=== PATIENT | female | born 1955 | race Caucasian/White ===

== ENCOUNTER 2021-07-16 12:38 | Inpatient (IN) | payer OTHER, MEDICARE ==
[2021-07-16] MEDS ORDERED: CEFTRIAXONE 1000 MG/VIAL ONE (13:20)
[2021-07-16] MEDS ORDERED: METHYLPREDNISOLONE 125 MG INJ ONE (13:20)
[2021-07-16] MEDS ORDERED: IPRATROPIUM BROM 0.5MG/2.5ML ONE (13:21)
[2021-07-16] MEDS ORDERED: NA CHLORIDE 0.9% 500 ML ONE (13:21)
[2021-07-16] MEDS ORDERED: LEVALBUTEROL 1.25 MG/3 ML NEB ONE (13:21)
[2021-07-16 13:27] LABS: Absolute Lymphocytes (CBC) 0.7 K/uL (0.7-4.9); Basophils % 0.3 % (0-1.3); Hematocrit 42.2 % (36.0-45.0); Lymphocytes % 7.6 % (15.3-44.8); MPV 7.6 fL (7.6-11.3); RBC Red Blood Cell Count 4.37 M/uL (3.86-4.86)
--- NOTE | 2021-07-16 13:42 | RAD REPORT ---
EXAM DESCRIPTION: RAD - Chest Single View - 07/16/2021 1:12 pm CLINICAL HISTORY: CONGESTION COMPARISON: None TECHNIQUE: AP portable chest image was obtained 07/16/2021 1:12 pm . FINDINGS: No mass or consolidation. Lung markings are accentuated in each base due to shallow inspir ation and under penetrated portable technique. Minimal lung base infiltrates cannot be excluded. No f ailure or volume overload suspected. Heart and vasculature are normal. No measurable pleural effusion and no pneumothorax. No acute bony abnormality seen. No acute aortic findings suspected. IMPRESSION: Limited portable study without peripheral mass or consolidations seen. Increased opacification in each base probably shallow inspiration atelectasis. Early lung base edema or infiltrate cannot be excluded.
[2021-07-16 13:51] LABS: ALT/SGPT 22 U/L (12-78); AST/SGOT 18 U/L (15-37); Albumin 3.5 g/dL (3.4-5.0); Alkaline Phosphatase 98 U/L (45-117); BUN Blood Urea Nitrogen 15 mg/dL (7-18); Bicarbonate 24 mmol/L (21-32); Bilirubin Direct 0.1 mg/dL (0-0.2); Bilirubin Total 0.5 mg/dL (0.2-1.0); Creatine Phosphokinase 45 U/L (26-192); Glucose Level 276 mg/dL (74-106); Lipase 97 U/L (73-393); NT PRO-BNP 1139 pg/mL (<125); Potassium 4.1 mmol/L (3.5-5.1); Protein, Total 7.3 g/dL (6.4-8.2); Sodium Level 136 mmol/L (136-145); Troponin (Emerg Dept Use Only) < 0.02 ng/mL (0.0-0.045)
[2021-07-16 13:53] LABS: CKMB Creatine Kinase MB < 1.0 ng/mL (1.0-3.6)
[2021-07-16] MEDS ORDERED: ACETAMINOPHEN 500 MG TAB ONE (13:53)
[2021-07-16 14:06] LABS: Protime INR 1.03
--- NOTE | 2021-07-16 14:57 | RAD REPORT ---
EXAM DESCRIPTION: CT - Chest For Pe Angio - 07/16/2021 2:26 pm CLINICAL HISTORY: CHEST PAIN COMPARISON: Chest Single View dated 07/16/2021 TECHNIQUE: Dynamically enhanced 3 mm thick images of the chest were obtained during administration o f approximately 150mL Isovue 370 IV contrast. Coronal and oblique MIP reconstruction images were gene rated and reviewed. Exam utilizes a protocol to evaluate the pulmonary arterial tree. All CT scans are performed using dose optimization technique as appropriate and may include automated exposure control or mA/KV adjustment according to patient size. FINDINGS: No pulmonary emboli are identified. The aorta as imaged shows no acute or suspicious finding. No pericardial thickening or effusion. Motion degradation limits evaluation of the lung parenchyma. There is a 9 millimeter rounded noncalci fied nodule in the right middle lobe (image 78) and a 3 millimeter noncalcified nodule in the left up per lobe (image 58). No consolidation. Scarring or atelectasis changes are present in the lung bases. No pleural effusion or pleural thickening. Small nonspecific mediastinal and hilar lymph nodes are present. No chest wall masses or abnormal axi llary lymphadenopathy. IMPRESSION: No pulmonary emboli identified. No focal consolidation or acute lung parenchymal process identified. Two pulmonary nodules are present largest measuring 9 mm. Using the Fleischner 2017 criteria, recomme ndation for the patient would be to undergoCT study in 3-6 months. If the nodules are stable at the i nitial follow-up, additional follow-up in 18-24 months would be considered for low risk patient or o btained for a high risk patient.
[2021-07-16 16:34] LABS: Urine Blood 2+ (Negative); Urine Glucose Negative (Negative); Urine Protein 1+ (Negative); Urine Specific Gravity <=1.005 (1.005-1.030)
--- NOTE | 2021-07-16 16:37 | EDPHYS ---
Physician Documentation [facility] Name: Alma Chaparro Age: 66 yrs Sex: Female : 1955 Arrival Date: 07/16/2021 Time: 12:39 Bed 4 Private MD: ED Physician Vinod Turpin HPI: 07/16 14:49 This 66 yrs old Female presents to ER via Wheelchair with complaints of low oxygen. ma2 14:49 Onset: The symptoms/episode began/occurred gradually, 2 day(s) ago. Associated signs ma2 and symptoms: Pertinent positives: productive cough, fevere, Pertinent negatives: diaphoresis, dizziness, fever, hemoptysis, nausea, numbness in extremities, visual changes. Severity of symptoms: At their worst the symptoms were moderate in the emergency department the symptoms are unchanged. The patient has not experienced similar symptoms in the past. Historical: - Allergies: 12:48 PENICILLINS; ld1 12:48 Hydrocodone-Acetaminophen; ld1 - Home Meds: 13:10 metformin 500 mg Oral tab [Active]; lorazepam 0.5 mg Oral tab 1 tab As needed [Active]; ss sertraline 100 mg oral tab 1 tab once daily [Active]; levothyroxine 88 mcg cap 1 cap once daily [Active]; pantoprazole 40 mg oral TbEC 1 tab once daily [Active]; simvastatin 40 mg Oral tab 1 tab once daily [Active]; cholestyramine Powder 1 scoop twice daily [Active]; - PMHx: 12:48 Hypertensive disorder; Anxiety; COPD; ld1 - Immunization history:: Adult Immunizations up to date, Client reports receiving the 2nd dose of the Covid vaccine. - Social history:: Smoking status: Patient reports the use of cigarette tobacco products, smokes three packs cigarettes per day. Patient/guardian denies using alcohol, Patient/guardian denies using street drugs, The patient lives with family. - Family history:: not pertinent. ROS: 14:49 Constitutional: Negative for fever, chills, and weight loss. ma2 14:49 All other systems are negative. Exam: 14:49 Constitutional: This is a well developed, well nourished patient who is awake, alert, ma2 and in no acute distress. Head/Face: Normocephalic, atraumatic. Eyes: Pupils equal round and reactive to light, extra-ocular motions intact. Lids and lashes normal. Conjunctiva and sclera are non-icteric and not injected. Cornea within normal limits. Periorbital areas with no swelling, redness, or edema. ENT: Nares patent. No nasal discharge, no septal abnormalities noted. Tympanic membranes are normal and external auditory canals are clear. Oropharynx with no redness, swelling, or masses, exudates, or evidence of obstruction, uvula midline. Mucous membranes moist. Neck: Trachea midline, no thyromegaly or masses palpated, and no cervical lymphadenopathy. Supple, full range of motion without nuchal rigidity, or vertebral point tenderness. No Meningismus. Chest/axilla: Normal chest wall appearance and motion. Nontender with no deformity. No lesions are appreciated. Cardiovascular: Regular rate and rhythm with a normal S1 and S2. No gallops, murmurs, or rubs. Normal PMI, no JVD. No pulse deficits. Abdomen/GI: Soft, non-tender, with normal bowel sounds. No distension or tympany. No guarding or rebound. No evidence of tenderness throughout. Back: No spinal tenderness. No costovertebral tenderness. Full range of motion. Skin: Warm, dry with normal turgor. Normal color with no rashes, no lesions, and no evidence of cellulitis. MS/ Extremity: Pulses equal, no cyanosis. Neurovascular intact. Full, normal range of motion. Neuro: Awake and alert, GCS 15, oriented to person, place, time, and situation. Cranial nerves II-XII grossly intact. Motor strength 5/5 in all extremities. Sensory grossly intact. Cerebellar exam normal. Normal gait. 14:49 Respiratory: moderate respiratory distress is noted, Respirations: labored breathing, Breath sounds: rales, Respiratory rate: 20 Vital Signs: 12:45 BP 129 / 69; Pulse 111; Resp 22; Temp 101.9(O); Pulse Ox 89% 4 lpm ; Weight 90.72 kg; ld1 Height 5 ft. 4 in. (162.56 cm); Pain 0/10; 13:38 BP 127 / 54; Pulse 102; Resp 29; Pulse Ox 97% on Nebulizer Mask; jl7 15:00 BP 147 / 68; Pulse 108; Resp 24; Pulse Ox 99% on 6 lpm NC; jl7 17:14 BP 140 / 80; Pulse 90; Resp 21; Temp 98.6; Pulse Ox 91% on 50% Venturi mask; jl7 12:45 Body Mass Index 34.33 (90.72 kg, 162.56 cm) ld1 MDM: 12:52 Patient medically screened. ma2 14:49 Differential diagnosis: Anemia Anxiety Reaction pneumonia, reactive airway disease. al2 16:34 Data reviewed: vital signs, nurses notes. Counseling: I had a detailed discussion with ma2 the patient and/or guardian regarding: the historical points, exam findings, and any diagnostic results supporting the discharge/admit diagnosis, the presence of at least one elevated blood pressure reading (>120/80) during this emergency department visit, the need for outpatient follow up. 07/16 12:53 Order name: BMP [facility] 07/16 12:53 Order name: Blood Culture Adult (2) [facility] 07/16 12:53 Order name: CBC with Diff [facility] 07/16 12:53 Order name: CPK; Complete Time: 13:58 [facility] 07/16 12:53 Order name: Ckmb; Complete Time: 13:58 [facility] 07/16 12:53 Order name: D-Dimer; Complete Time: 15:24 [facility] 07/16 12:53 Order name: Hepatic Function; Complete Time: 13:58 [facility] 07/16 12:53 Order name: Lipase; Complete Time: 13:58 [facility] 07/16 12:53 Order name: Magnesium; Complete Time: 13:58 [facility] 07/16 12:53 Order name: NT PRO-BNP; Complete Time: 13:58 [facility] 07/16 12:53 Order name: PT-INR; Complete Time: 15:24 [facility] 07/16 12:53 Order name: Ptt, Activated; Complete Time: 15:24 [facility] 07/16 12:53 Order name: Troponin (emerg Dept Use Only); Complete Time: 13:58 [facility] 07/16 12:53 Order name: SARS-COV-2 RT PCR (Document "Date of Onset" if Symptomatic); Complete Time: [facility] 15:24 07/16 12:53 Order name: XRAY CXR (1 view); Complete Time: 13:45 al2 07/16 12:53 Order name: Basic Metabolic Panel; Complete Time: 13:58 EDMS 07/16 12:53 Order name: Blood Culture [facility] 07/16 12:53 Order name: CBC with Automated Diff; Complete Time: 13:45 [facility] 07/16 12:54 Order name: Procalcitonin; Complete Time: 15:24 al2 07/16 12:54 Order name: Lactate; Complete Time: 13:58 al2 07/16 14:11 Order name: CT Chest For PE Angio; Complete Time: 15:24 al2 07/16 16:34 Order name: Urine Dipstick-Ancillary; Complete Time: 16:35 [facility] 07/16 16:42 Order name: Lactate Sepsis 2 HR Follow-up; Complete Time: 16:42 [facility] 07/16 12:53 Order name: EKG; Complete Time: 12:54 al2 07/16 12:53 Order name: Cardiac monitoring; Complete Time: 13:36 ma2 07/16 12:53 Order name: EKG - Nurse/Tech; Complete Time: 13:36 al2 07/16 12:53 Order name: IV Saline Lock; Complete Time: 13:19 al2 07/16 12:53 Order name: Labs collected and sent; Complete Time: 13:19 ma2 07/16 12:53 Order name: O2 Per Protocol; Complete Time: 13:19 al2 07/16 12:53 Order name: O2 Sat Monitoring; Complete Time: 13:19 al2 07/16 15:25 Order name: Urine Dipstick-Ancillary (obtain specimen); Complete Time: 16:35 ma2 Administered Medications: 13:30 Drug: AtroVENT (ipratropium) Aerosol 0.5 mg Route: Inhalation; [facility] [address] 13:30 Drug: Xopenex (levalbuterol) (3) 1.25 mg Route: Inhalation; jl7 14:00 Follow up: Response: No adverse reaction jl7 13:30 Drug: MethylPrednisoLONE 125 mg Route: IVP; Site: left antecubital; jl7 14:00 Follow up: Response: No adverse reaction jl7 13:30 Drug: NS 0.9% 500 ml Route: IV; Rate: bolus; Site: left antecubital; jl7 14:15 Follow up: Response: No adverse reaction; IV Status: Completed infusion; IV Intake: jl7 500ml 13:31 Drug: AtroVENT (ipratropium) Aerosol 0.5 mg Route: Inhalation; 7 13:33 Drug: Rocephin (cefTRIAXone) 1 grams Route: IV; Rate: calculated rate; Site: left [facility] antecubital; 15:36 Follow up: Response: No adverse reaction; IV Status: Completed infusion 7 13:33 Drug: AtroVENT (ipratropium) Aerosol 0.5 mg Route: Inhalation; 7 14:00 Follow up: Response: No adverse reaction 7 14:05 Drug: Acetaminophen 1000 mg Route: PO; [facility] 15:30 Follow up: Response: No adverse reaction; Temperature is decreased jl7 18:16 Not Given (Physician Discretion): NS 0.9% 2000 ml IV at 1 bolus Per protocol; 2000 mL 7 bolus Disposition Summary: 07/16/21 16:36 Hospitalization Ordered Hospitalization Status: Inpatient Admission ma2 Provider: Gerardo Colón Location: Telemetry/MedSurg (Inpatient) ma2 Condition: Stable ma2 Problem: new ma2 Symptoms: are unchanged al2 Bed/Room Type: Standard [facility] Room Assignment: 228(07/16/21 17:35) kj1 Diagnosis - Severe sepsis without septic shock ma2 - Acute cystitis ma2 - Altered mental status, unspecified ma2 Forms: - Medication Reconciliation Form ma2 - SBAR form ma2 Signatures: Dispatcher [employer] Omaira Blair RN RN ss Wanda Gonzales RN RN jl7 Vinod Turpin MD MD ma2 Anne Britt kj1 Brenda Calvert RN RN ld1 Corrections: (The following items were deleted from the chart) 13:14 12:48 Home Meds: Metformin Oral; 1 17:35 16:36 ma2 kj1
--- NOTE | 2021-07-16 16:37 | ER ---
Nurse's Notes [facility] Name: Alma Chaparro Age: 66 yrs Sex: Female : 1955 Arrival Date: 07/16/2021 Time: 12:39 Bed 4 Private MD: Diagnosis: Severe sepsis without septic shock;Acute cystitis;Altered mental status, unspecified Presentation: 07/16 12:45 Chief complaint: Patient states: I have been really tired and wanting to sleep all the ld1 time. My oxygen level this morning was 78% RA. Pt family states she was very disoriented and altered. Pt daughter brought her husbands oxygen tank to get oxygen level up. Upon arrival to ER pt SpO2 was 85% RA. Coronavirus screen: At this time, the client does not indicate any symptoms associated with coronavirus-19. Ebola Screen: No symptoms or risks identified at this time. Initial Sepsis Screen: Does the patient meet any 2 criteria? No. Patient's initial sepsis screen is negative. Does the patient have a suspected source of infection? No. Patient's initial sepsis screen is negative. Risk Assessment: Do you want to hurt yourself or someone else? Patient reports no desire to harm self or others. Onset of symptoms was July 16, 2021. 12:45 Method Of Arrival: Wheelchair ld1 12:45 Acuity: YUNI 2 ld1 Triage Assessment: 12:48 General: Appears in no apparent distress. uncomfortable, Behavior is drowsy. Pain: ld1 Denies pain. EENT: No signs and/or symptoms were reported regarding the EENT system. Neuro: Level of Consciousness is awake, obeys commands, confused, Oriented to person, place, time, situation. Cardiovascular: Capillary refill < 3 seconds Patient's skin is warm and dry. Respiratory: Airway is patent Respiratory effort is even, labored. GI: Abdomen is round non-distended. : No signs and/or symptoms were reported regarding the genitourinary system. Derm: No signs and/or symptoms reported regarding the dermatologic system. Musculoskeletal: No signs and/or symptoms reported regarding the musculoskeletal system. Historical: - Allergies: 12:48 PENICILLINS; ld1 12:48 Hydrocodone-Acetaminophen; ld1 - Home Meds: 13:10 metformin 500 mg Oral tab [Active]; lorazepam 0.5 mg Oral tab 1 tab As needed [Active]; ss sertraline 100 mg oral tab 1 tab once daily [Active]; levothyroxine 88 mcg cap 1 cap once daily [Active]; pantoprazole 40 mg oral TbEC 1 tab once daily [Active]; simvastatin 40 mg Oral tab 1 tab once daily [Active]; cholestyramine Powder 1 scoop twice daily [Active]; - PMHx: 12:48 Hypertensive disorder; Anxiety; COPD; ld1 - Immunization history:: Adult Immunizations up to date, Client reports receiving the 2nd dose of the Covid vaccine. - Social history:: Smoking status: Patient reports the use of cigarette tobacco products, smokes three packs cigarettes per day. Patient/guardian denies using alcohol, Patient/guardian denies using street drugs, The patient lives with family. - Family history:: not pertinent. Screenin:38 Abuse screen: Denies threats or abuse. Denies injuries from another. Nutritional jl7 screening: No deficits noted. Tuberculosis screening: No symptoms or risk factors identified. Fall Risk IV access (20 points). Total Franks Fall Scale indicates No Risk (0-24 pts). Assessment: 13:00 General: Appears distressed, uncomfortable, Behavior is calm, cooperative, appropriate jl7 for age. Pain: Denies pain. Neuro: Level of Consciousness is awake, alert, obeys commands, Oriented to person, place, time, situation. Cardiovascular: Heart tones present Patient's skin is warm and dry. Respiratory: Airway is patent Respiratory effort is even, labored, Respiratory pattern is symmetrical, tachypnea Breath sounds are clear. Derm: Skin is pink, warm \T\ dry. 14:00 Reassessment: Patient appears in no apparent distress at this time. No changes from jl7 previously documented assessment. Patient and/or family updated on plan of care and expected duration. Pain level reassessed. Patient is alert, oriented x 3, equal unlabored respirations, skin warm/dry/pink. 15:40 Reassessment: ERD at bedside discussing results and POC. jl7 16:00 Reassessment: Patient appears in no apparent distress at this time. No changes from jl7 previously documented assessment. Patient and/or family updated on plan of care and expected duration. Pain level reassessed. Patient is alert, oriented x 3, equal unlabored respirations, skin warm/dry/pink. 17:00 Reassessment: Patient appears in no apparent distress at this time. No changes from jl7 previously documented assessment. Patient and/or family updated on plan of care and expected duration. Pain level reassessed. Patient is alert, oriented x 3, equal unlabored respirations, skin warm/dry/pink. 18:00 Reassessment: Patient appears in no apparent distress at this time. No changes from jl7 previously documented assessment. Patient and/or family updated on plan of care and expected duration. Pain level reassessed. Patient is alert, oriented x 3, equal unlabored respirations, skin warm/dry/pink. Vital Signs: 12:45 BP 129 / 69; Pulse 111; Resp 22; Temp 101.9(O); Pulse Ox 89% 4 lpm ; Weight 90.72 kg; ld1 Height 5 ft. 4 in. (162.56 cm); Pain 0/10; 13:38 BP 127 / 54; Pulse 102; Resp 29; Pulse Ox 97% on Nebulizer Mask; jl7 15:00 BP 147 / 68; Pulse 108; Resp 24; Pulse Ox 99% on 6 lpm NC; jl7 17:14 BP 140 / 80; Pulse 90; Resp 21; Temp 98.6; Pulse Ox 91% on 50% Venturi mask; jl7 12:45 Body Mass Index 34.33 (90.72 kg, 162.56 cm) ld1 ED Course: 12:39 Patient arrived in ED. am2 12:48 Triage completed. ld1 12:48 Arm band placed on right wrist. ld1 12:52 Vinod Turpin MD is Attending Physician. ma2 13:00 Wanda Gonzales RN is Primary Nurse. jl7 13:00 Patient has correct armband on for positive identification. Placed in gown. Bed in low jl7 position. Call light in reach. Side rails up X2. panel monitor on. Pulse ox on. NIBP on. 13:00 Initial lab(s) drawn, by ED staff, sent to lab. First set of blood cultures drawn by ED jl7 staff, Second set of blood cultures drawn by ia, EKG done, by ED staff, reviewed by Vinod Turpin MD COVID swab sent to lab. Inserted saline lock: 20 gauge in left antecubital area, using aseptic technique. Blood collected. 13:12 XRAY CXR (1 view) In Process Unspecified. EDMS 14:26 CT Chest For PE Angio In Process Unspecified. EDMS 16:36 Gerardo Colón DO is Hospitalizing Provider. ma2 19:01 No provider procedures requiring assistance completed. Patient admitted, IV remains in jl7 place. intact, No redness/swelling at site. Administered Medications: 13:30 Drug: AtroVENT (ipratropium) Aerosol 0.5 mg Route: Inhalation; jl7 13:30 Drug: Xopenex (levalbuterol) (3) 1.25 mg Route: Inhalation; jl7 14:00 Follow up: Response: No adverse reaction jl7 13:30 Drug: MethylPrednisoLONE 125 mg Route: IVP; Site: left antecubital; jl7 14:00 Follow up: Response: No adverse reaction jl7 13:30 Drug: NS 0.9% 500 ml Route: IV; Rate: bolus; Site: left antecubital; jl7 14:15 Follow up: Response: No adverse reaction; IV Status: Completed infusion; IV Intake: jl7 500ml 13:31 Drug: AtroVENT (ipratropium) Aerosol 0.5 mg Route: Inhalation; jl7 13:33 Drug: Rocephin (cefTRIAXone) 1 grams Route: IV; Rate: calculated rate; Site: left jl7 antecubital; 15:36 Follow up: Response: No adverse reaction; IV Status: Completed infusion jl7 13:33 Drug: AtroVENT (ipratropium) Aerosol 0.5 mg Route: Inhalation; jl7 14:00 Follow up: Response: No adverse reaction jl7 14:05 Drug: Acetaminophen 1000 mg Route: PO; jl7 15:30 Follow up: Response: No adverse reaction; Temperature is decreased jl7 18:16 Not Given (Physician Discretion): NS 0.9% 2000 ml IV at 1 bolus Per protocol; 2000 mL jl7 bolus Intake: 14:15 IV: 500ml; Total: 500ml. jl7 Outcome: 16:36 Decision to Hospitalize by Provider. ma2 19:01 Admitted to Tele accompanied by tech, family with patient, via wheelchair, room 228, jl7 with oxygen, with chart, Report called to GEMMA Rutherford 19:01 Condition: stable 19:01 Discharge instructions given to patient, family, Instructed on the need for admit, Demonstrated understanding of instructions. 19:02 Patient left the ED. tim Signatures: Dispatcher [employer] Omaira Blair RN RN ss Wanda Gonzales RN RN jl7 Nora Dominguez Mohammad, MD MD wy2 Brenda Calvret RN RN ld1 Corrections: (The following items were deleted from the chart) 13:14 12:48 Home Meds: Metformin Oral; [facility] 15:49 15:46 Reassessment: tim dumont
--- NOTE | 2021-07-16 17:15 | P.HP ---
Certification for Inpatient Patient admitted to: Inpatient With expected LOS: >2 Midnights Patient will require the following post-hospital care: None Practitioner: I am a practitioner with admitting privileges, knowledge of patient current condition, hospital course, and medical plan of care. Services: Services provided to patient in accordance with Admission requirements found in Title 42 Section 412.3 of the Code of Federal Regulations Patient History Date of Service: 07/16/21 Primary Care Provider: Luis Garcia Reason for admission: Shortness of breath and dysuria History of Present Illness: 66-year-old female presented to the emergency room with increasing shortness of breath and dysuria. Patient is visiting in the area. She is from [facility] near [facility]. She reports 3-day history of dysuria. She had fever this morning. She denied any night sweats, or chest pain. She did report some shortness of breath. No significant nausea or vomiting. Patient came to the ER for further evaluation. In the ER patient was evaluated. Patient had shortness of breath. D-dimer was elevated. CT scan showed no evidence of pulmonary believes him or pneumonia. Patient found to have a UTI. White count 9.6, hemoglobin 14. Blood count 185. Sodium 136, potassium 4.1. BUN of 15, creatinine 1.03 with a GFR 53. Glucose 276. Procalcitonin 0.44. Troponin normal. Lactic acid was 2.2. Patient was given 1 L fluid bolus. Repeat lactic acid normal at 1.6. Patient admitted for further evaluation and treatment. Patient reports history of COPD but only takes albuterol. - Past Medical/Surgical History Diabetic: Yes -: Diabetes mellitus type 2 [id number] -: Hypothyroidism -: Depression -: GERD -: Hyperlipidemia -: Hypertension -: COPD -: Tobacco abuse -: Hysterectomy Psychosocial/ Personal History: Patient is visiting in the area. She is from [facility] near [facility] - Family History Family History: Reviewed- Non-Contributory - Social History Smoking Status: Current every day smoker Counseled patient to stop smoking for: less than 10 minutes Smoking therapy provided: Yes Patient receptive to therapy: Yes Alcohol use: No CD- Drugs: No Caffeine use: Yes Place of Residence: Home Review of Systems General: Fever, As per HPI Eyes: Unremarkable ENT: Unremarkable Respiratory: Shortness of Breath, SOB with Excertion, Wheezing, As per HPI Cardiovascular: Unremarkable Genitourinary: Dysuria, As per HPI Musculoskeletal: Unremarkable Integumentary: Unremarkable Neurological: Unremarkable Lymphatics: Unremarkable Physical Examination - Studies Laboratory Data (last 24 hrs) 07/16/21 13:20: PT 11.8, INR 1.03, APTT 31.8 07/16/21 13:20: WBC 9.60, Hgb 14.2, Hct 42.2, Plt Count 185 07/16/21 13:20: Sodium 136, Potassium 4.1, BUN 15, Creatinine 1.03, Glucose 276 H, Magnesium 2.0, Total Bilirubin 0.5, AST 18, ALT 22, Alkaline Phosphatase 98, Lipase 97 Assessment and Plan - Plan COVID: Negative Chest x-ray: COMPARISON: None TECHNIQUE: AP portable chest image was obtained 07/16/2021 1:12 pm . FINDINGS: No mass or consolidation. Lung markings are accentuated in each base due to shallow inspiration and under penetrated portable technique. Minimal lung base infiltrates cannot be excluded. No failure or volume overload suspected. Heart and vasculature are normal. No measurable pleural effusion and no pneumothorax. No acute bony abnormality seen. No acute aortic findings suspected. IMPRESSION: Limited portable study without peripheral mass or consolidations seen. Increased opacification in each base probably shallow inspiration atelectasis. Early lung base edema or infiltrate cannot be excluded. CT angio chest: COMPARISON: Chest Single View dated 07/16/2021 TECHNIQUE: Dynamically enhanced 3 mm thick images of the chest were obtained during administration of approximately 150mL Isovue 370 IV contrast. Coronal and oblique MIP reconstruction images were generated and reviewed. Exam utilizes a protocol to evaluate the pulmonary arterial tree. All CT scans are performed using dose optimization technique as appropriate and may include automated exposure control or mA/KV adjustment according to patient size. FINDINGS: No pulmonary emboli are identified. The aorta as imaged shows no acute or suspicious finding. No pericardial thickening or effusion. Motion degradation limits evaluation of the lung parenchyma. There is a 9 millimeter rounded noncalcified nodule in the right middle lobe (image 78) and a 3 millimeter noncalcified nodule in the left upper lobe (image 58). No consolidation. Scarring or atelectasis changes are present in the lung bases. No pleural effusion or pleural thickening. Small nonspecific mediastinal and hilar lymph nodes are present. No chest wall masses or abnormal axillary lymphadenopathy. IMPRESSION: No pulmonary emboli identified. No focal consolidation or acute lung parenchymal process identified. Two pulmonary nodules are present largest measuring 9 mm. Using the Fleischner 2017 criteria, recommendation for the patient would be to undergoCT study in 3-6 months. If the nodules are stable at the initial follow-up, additional follow- up in 18-24 months would be considered for low risk patient or obtained for a high risk patient. Physical Exam: GENERAL: The patient is a well-developed, well-nourished, in no apparent distress. Alert and oriented x3. VITAL SIGNS: Reviewed HEENT: Head is normocephalic and atraumatic. Extraocular muscles are intact. Pupils are equal, round, and reactive to light and accommodation. Mouth dry. NECK: Supple. No carotid bruits. No lymphadenopathy or thyromegaly. LUNGS: Wheezing bilateral. Currently on Ventimask. HEART: Regular rate and rhythm, no appreciable gallops, rubs, murmurs or extra heart sounds ABDOMEN: Soft, nontender, and nondistended. Positive bowel sounds. No hepatosplenomegaly was noted. EXTREMITIES: Without any cyanosis, clubbing, rash, lesions or peripheral edema. NEUROLOGIC: The patient is oriented to person, place and time. Strength and sensation are grossly intact. Face is symmetric. SKIN: Normal color, turgor and temperature. No ulcerations or rashes noted. Impression: Dyspnea secondary to COPD exacerbation with CT scan showing 2 pulmonary nodules UTI Diabetes mellitus type 2 with hyperglycemia Hypertension Hyperlipidemia Hypothyroidism GERD Tobacco abuse Depression with anxiety Plan: Dyspnea secondary to COPD exacerbation with CT scan showing 2 pulmonary nodules: Patient will be admitted for further evaluation and treatment. Patient given Solu-Medrol in the emergency room. We will continue with prednisone 20 mg 1 pill twice daily. Continue with COPD medicationBrovana, albuterol and Atrovent. Wean off oxygen to maintain sats above 90%. Patient currently on Ventimask. CT scan showed no evidence of pulmonary embolism or pneumonia. Patient with pulmonary nodules. This will need to be further evaluated as an outpatient with follow-up and repeat CT scan in 3 to 6 months. Patient also with UTI. Continue IV fluids. Continue Rocephin. Blood and urine culture results obtained. Anticipate continued improvement likely discharge in the next 72 hours. UTI: Continue with Rocephin. Blood and urine culture results obtained. We will continue with IV fluids. Diabetes mellitus type 2 with hyperglycemia: We will check A1c. Continue Accu- Cheks and sliding scale. Obtain and review home medication. Hypertension: Blood pressure stable at this time. Will monitor off medication. Need to obtain and review home medication. Hyperlipidemia: Restart home medication Zocor 40 mg daily. Hypothyroidism: We will check TSH and free T4. Continue home medication levothyroxine 88 mcg daily. GERD: Continue with home medicationProtonix 40 mg daily. Tobacco abuse: We will provide nicotine patch. Cessation education will be provided. Depression with anxiety: Continue with home medication of sertraline 100 mg daily and lorazepam as needed. Code Status: Full Code DVT prophylaxis: Lovenox Advanced Care Planning-30 minutes: Home at discharge. Discharge Plan: Home Plan to discharge in: 72 Hours - Advance Directives Does patient have a Living Will: No Does patient have a Durable POA for Healthcare: No - Code Status/Comfort Care Code Status Assessed: Yes (Full code) Time Spent Managing Pts Care (In Minutes): 55
[2021-07-16] MEDS ORDERED: ONDANSETRON 4 MG/2 ML VIAL IV PRN (18:13)
[2021-07-16] MEDS ORDERED: IPRATROPIUM BROM 0.5MG/2.5ML NEB PRN (18:13)
[2021-07-16] MEDS ORDERED: ALBUTEROL 2.5 MG/3 ML NEB SOL NEB PRN (18:13)
[2021-07-16 18:17] VITALS: BMI 34.3
[2021-07-16] MEDS: NICOTINE 21 MG/PAT TD SCH (20:00)
[2021-07-16] MEDS: ARFORMOTEROL TARTRATE 15 MCG/2 ML VIAL.NEB NEB SCH (20:00)
[2021-07-16] MEDS: NA CHLORIDE 0.9% 1,000 ML IV SCH (20:25)
[2021-07-16] MEDS: ENOXAPARIN 40 MG/0.4 ML SQ SCH (20:28)
[2021-07-16] MEDS: ATORVASTATIN 20 MG TAB PO SCH (20:29)
[2021-07-16] MEDS: predniSONE 20 MG TAB PO SCH (20:29)
[2021-07-16] MEDS: INSULIN -REGULAR HUMAN 50 UNIT/0.5 ML ML SQ SCH (20:33)
[2021-07-16] MEDS: LORAZEPAM 0.5 MG TABLET PO PRN (20:37)
[2021-07-17] MEDS: NA CHLORIDE 0.9% 1,000 ML IV SCH (04:13)
[2021-07-17] MEDS: LEVOTHYROXINE SOD 0.088 MG TAB PO SCH (05:36)
--- NOTE | 2021-07-17 06:08 | P.PN ---
Subjective Date of Service: 07/17/21 Primary Care Provider: Luis Garcia Chief Complaint: Shortness of breath and dysuria Subjective: Other (Patient reports improvement. Currently on 6 L per nasal cannula.) Physical Examination - Vital Signs Temperature: 98.6 F Blood Pressure: 140/80 Pulse: 90 Respirations: 21 - Studies Laboratory Data (last 24 hrs) 07/16/21 13:20: PT 11.8, INR 1.03, APTT 31.8 07/16/21 13:20: WBC 9.60, Hgb 14.2, Hct 42.2, Plt Count 185 07/16/21 13:20: Sodium 136, Potassium 4.1, BUN 15, Creatinine 1.03, Glucose 276 H, Magnesium 2.0, Total Bilirubin 0.5, AST 18, ALT 22, Alkaline Phosphatase 98, Lipase 97 Assessment & Plan Discharge Plan: Home Plan to discharge in: 48 Hours Physician Review Additional Text: COVID: Negative Chest x-ray: COMPARISON: None TECHNIQUE: AP portable chest image was obtained 07/16/2021 1:12 pm . FINDINGS: No mass or consolidation. Lung markings are accentuated in each base due to shallow inspiration and under penetrated portable technique. Minimal lung base infiltrates cannot be excluded. No failure or volume overload suspected. Heart and vasculature are normal. No measurable pleural effusion and no pneumothorax. No acute bony abnormality seen. No acute aortic findings suspected. IMPRESSION: Limited portable study without peripheral mass or consolidations seen. Increased opacification in each base probably shallow inspiration atelectasis. Early lung base edema or infiltrate cannot be excluded. CT angio chest: COMPARISON: Chest Single View dated 07/16/2021 TECHNIQUE: Dynamically enhanced 3 mm thick images of the chest were obtained during administration of approximately 150mL Isovue 370 IV contrast. Coronal and oblique MIP reconstruction images were generated and reviewed. Exam utilizes a protocol to evaluate the pulmonary arterial tree. All CT scans are performed using dose optimization technique as appropriate and may include automated exposure control or mA/KV adjustment according to patient size. FINDINGS: No pulmonary emboli are identified. The aorta as imaged shows no acute or suspicious finding. No pericardial thickening or effusion. Motion degradation limits evaluation of the lung parenchyma. There is a 9 millimeter rounded noncalcified nodule in the right middle lobe (image 78) and a 3 millimeter noncalcified nodule in the left upper lobe (image 58). No consolidation. Scarring or atelectasis changes are present in the lung bases. No pleural effusion or pleural thickening. Small nonspecific mediastinal and hilar lymph nodes are present. No chest wall masses or abnormal axillary lymphadenopathy. IMPRESSION: No pulmonary emboli identified. No focal consolidation or acute lung parenchymal process identified. Two pulmonary nodules are present largest measuring 9 mm. Using the Fleischner 2017 criteria, recommendation for the patient would be to undergoCT study in 3-6 months. If the nodules are stable at the initial follow-up, additional follow- up in 18-24 months would be considered for low risk patient or obtained for a high risk patient. Physical Exam: GENERAL: The patient is a well-developed, well-nourished, in no apparent distress. Alert and oriented x3. VITAL SIGNS: Reviewed HEENT: Neck supple LUNGS: Wheezing noted. Overall better air movement. Now down to 6 L per nasal cannula HEART: Regular rate and rhythm, no appreciable gallops, rubs, murmurs or extra heart sounds ABDOMEN: Soft, nontender, and nondistended. Positive bowel sounds. No hepatosplenomegaly was noted. EXTREMITIES: Without any cyanosis, clubbing, rash, lesions or peripheral edema. NEUROLOGIC: The patient is oriented to person, place and time. Strength and sensation are grossly intact. Face is symmetric. SKIN: Normal color, turgor and temperature. No ulcerations or rashes noted. Impression: Dyspnea secondary to COPD exacerbation with CT scan showing 2 pulmonary nodules UTI Diabetes mellitus type 2 with hyperglycemia Hypertension Hyperlipidemia Hypothyroidism GERD Tobacco abuse Depression with anxiety Plan: Dyspnea secondary to COPD exacerbation with CT scan showing 2 pulmonary nodules: Patient has improved. Now down to 6 L per nasal cannula. Continue to wean off oxygen to maintain sats above 90%. CT shows no evidence of pneumonia or pulmonary believes him. Continue prednisone taper. Patient will require COPD medication at discharge. Patient remains on Rocephin. Will discontinue IV fluids. Blood, urine culture obtained. CT scan revealed pulmonary nodules. This will need to be further evaluated as an outpatient with follow-up and repeat CT scan in 3 to 6 months. Anticipate discharge in the next 48 hours. UTI: Continue with Rocephin. Blood and urine culture results obtained. IV fluids discontinued. Diabetes mellitus type 2 with hyperglycemia: Hemoglobin A1c 7.4. Blood sugars elevated since the patient is on steroids. Will start low-dose Lantus for right now. Continue Accu-Cheks and sliding scale. Obtain and review home medication. Hypertension: Restart lisinopril 5 mg daily. Will monitor and adjust accordingly. Hyperlipidemia: Continue home medication Zocor 40 mg daily. Hypothyroidism: Lab unremarkable. Continue home medication levothyroxine 88 mcg daily. GERD: Continue with home medicationProtonix 40 mg daily. Tobacco abuse: Will provide nicotine patch. Cessation education will be provided. Depression with anxiety: Continue with home medication of sertraline 100 mg daily and lorazepam as needed. Code Status: Full Code DVT prophylaxis: Lovenox Advanced Care Planning-30 minutes: Home at discharge. Patient plans to go back to [facility] at discharge Time Spent Managing Pts Care (In Minutes): 55
[2021-07-17 06:19] LABS: Absolute Lymphocytes (CBC) 0.8 K/uL (0.7-4.9); Basophils % 0.1 % (0-1.3); Hematocrit 39.9 % (36.0-45.0); Lymphocytes % 7.2 % (15.3-44.8); MPV 7.7 fL (7.6-11.3); RBC Red Blood Cell Count 4.13 M/uL (3.86-4.86)
[2021-07-17 06:35] LABS: Magnesium 2.3 mg/dL (1.8-2.4); Potassium 4.2 mmol/L (3.5-5.1); Thyroid Stimulating Hormone 0.613 uIU/mL (0.360-3.740)
[2021-07-17] MEDS ORDERED: GLUCAGON 1 MG/VIAL IM PRN (07:16)
[2021-07-17] MEDS ORDERED: D50W 25 GM/50 ML SYRINGE IV PRN (07:16)
[2021-07-17 07:45] LABS: Blood Morphology Comment NOT SEEN (NOT SEEN); Platelet Estimate ADEQ
[2021-07-17] MEDS ORDERED: INSULIN GLARGINE 100 UNITS/ML SQ SCH (08:00)
[2021-07-17] MEDS: ARFORMOTEROL TARTRATE 15 MCG/2 ML VIAL.NEB NEB SCH ×2 (08:00→19:45)
[2021-07-17] MEDS: NICOTINE 21 MG/PAT TD SCH (08:24)
[2021-07-17] MEDS: ENOXAPARIN 40 MG/0.4 ML SQ SCH (08:25)
[2021-07-17] MEDS: PANTOPRAZOLE 40MG TABLET PO SCH (08:25)
[2021-07-17] MEDS: THIAMINE HCL 100 MG TABLET PO SCH (08:25)
[2021-07-17] MEDS: METFORMIN HCL 500 MG TAB PO SCH ×3 (08:25→20:21)
[2021-07-17] MEDS: FOLIC ACID 1 MG TABLET PO SCH (08:25)
[2021-07-17] MEDS: predniSONE 20 MG TAB PO SCH ×2 (08:25→20:21)
[2021-07-17] MEDS: SERTRALINE HCL 100 MG TAB PO SCH (08:25)
[2021-07-17] MEDS: INSULIN -REGULAR HUMAN 50 UNIT/0.5 ML ML SQ SCH ×4 (08:41→20:22)
--- NOTE | 2021-07-17 08:45 | P.CNS ---
Date of Consult: 07/17/21 Primary Care Provider: Luis Garcia Chief Complaint: Shortness of breath and dysuria History of Present Illness: 66-year-old [place]au[place] 66 aw SOB and dysuria and fever, NO PE, Hx of COPD Allergies hydrocodone [From [place]] Adverse Reaction (Verified 07/16/21 17:54) Shortness of breath Penicillins Adverse Reaction (Verified 07/16/21 17:54) Nausea/Vomiting Home Medications: LORazepam [Ativan] 0.5 mg PO BID PRN 07/16/21 Levothyroxine [Synthroid*] 0.088 mg PO DAILY 07/16/21 Metformin ER [Glucophage ER*] 500 mg PO TID 07/16/21 Sertraline [Zoloft*] 100 mg PO DAILY 07/16/21 Lisinopril [Zestril] 5 mg PO DAILY 07/17/21 Pantoprazole [Protonix Tab*] 40 mg PO DAILY 07/17/21 Simvastatin 40 mg PO DAILY 07/17/21 - Past Medical/Surgical History Diabetic: Yes -: Diabetes mellitus type 2 [id number] -: Hypothyroidism -: Depression -: GERD -: Hyperlipidemia -: Hypertension -: COPD -: Tobacco abuse -: Sleep apnea scheduled to have a new CPAP -: Hysterectomy Psychosocial/ Personal History: Patient is visiting in the area. She is from [facility] near [facility] - Social History Smoking Status: Current every day smoker Alcohol use: No CD- Drugs: No Caffeine use: Yes Place of Residence: Home Physical Examination Temp Pulse Resp BP Pulse Ox 98.6 F 90 21 H 140/80 07/17/21 06:08 07/17/21 06:08 07/17/21 06:08 07/17/21 06:08 Laboratory Data (last 24 hrs) 07/16/21 13:20: PT 11.8, INR 1.03, APTT 31.8 07/16/21 13:20: WBC 9.60, Hgb 14.2, Hct 42.2, Plt Count 185 07/16/21 13:20: Sodium 136, Potassium 4.1, BUN 15, Creatinine 1.03, Glucose 276 H, Magnesium 2.0, Total Bilirubin 0.5, AST 18, ALT 22, Alkaline Phosphatase 98, Lipase 97 - Problems (1) COPD exacerbation Current Visit: Yes Status: Acute Plan: age 66 aw COPD exacerbation, labs reviewed patient is out of town [place] continues to remain very hypoxic is no evidence of pulmonary embolism continue with steroids bronchodilators possible discharge tomorrow there is no evidence of pneumonia on the CT scan Dc antibiotic scheduled ipratropium 2 6 in addition to Brovana (2) Abnormal CT lung screening Current Visit: Yes Status: Acute Plan: RML SPN 9 mm prox to R cardiac border smooth well defined secong one 3.8 mm RUL, need f/u Ct in 6 months 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
[2021-07-17] MEDS ORDERED: CEFTRIAXONE 1,000 MG in NA CHLORIDE 0.9% 50 ML IVPB SCH (09:00)
[2021-07-17] MEDS: IPRATROPIUM BROM 0.5MG/2.5ML IH SCH ×2 (14:00→19:45)
[2021-07-17] MEDS: ATORVASTATIN 20 MG TAB PO SCH (20:21)
[2021-07-17] MEDS: LORAZEPAM 0.5 MG TABLET PO PRN (20:21)
[2021-07-17] MEDS: ACETAMINOPHEN 500 MG TAB PO PRN (20:24)
--- NOTE | 2021-07-17 20:39 | EKG ---
Test Date: 2021-07-16 Test Time: 13:33:34 Signal Tester: CHARLY MEASUREMENT RESULTS: Intervals: Rate: 103 DC: 134 QRSD: 78 QT: 318 QTc: 416 [place]: P: 89 DC: 134 QRS: 105 T: 24 INTERPRETIVE STATEMENTS: Sinus tachycardia Rightward axis Nonspecific ST and T wave abnormality Abnormal ECG No previous ECG available for comparison Electronically Signed On 07-17-21 20:35:17 RUBBER COMPOUNDER FORMULATOR by Jani Finch
[2021-07-18] MEDS: IPRATROPIUM BROM 0.5MG/2.5ML IH SCH ×4 (01:40→20:00)
[2021-07-18] MEDS: LEVOTHYROXINE SOD 0.088 MG TAB PO SCH (05:35)
[2021-07-18 05:46] LABS: Absolute Lymphocytes (CBC) 0.8 K/uL (0.7-4.9); Basophils % 0.2 % (0-1.3); Hematocrit 37.5 % (36.0-45.0); Lymphocytes % 8.1 % (15.3-44.8); MPV 7.6 fL (7.6-11.3); RBC Red Blood Cell Count 3.86 M/uL (3.86-4.86)
--- NOTE | 2021-07-18 05:51 | P.PN ---
Subjective Date of Service: 07/18/21 Primary Care Provider: Luis Garcia Chief Complaint: Shortness of breath and dysuria Subjective: Improving, Other (Currently on 6 L per nasal cannula) Physical Examination - Vital Signs Temperature: 98.8 F Blood Pressure: 133/63 Pulse: 62 Respirations: 17 Pulse Ox (%): 95 Assessment & Plan Discharge Plan: Home Plan to discharge in: 48 Hours Physician Review Additional Text: COVID: Negative Chest x-ray: COMPARISON: None TECHNIQUE: AP portable chest image was obtained 07/16/2021 1:12 pm . FINDINGS: No mass or consolidation. Lung markings are accentuated in each base due to shallow inspiration and under penetrated portable technique. Minimal lung base infiltrates cannot be excluded. No failure or volume overload suspected. Heart and vasculature are normal. No measurable pleural effusion and no pneumothorax. No acute bony abnormality seen. No acute aortic findings suspected. IMPRESSION: Limited portable study without peripheral mass or consolidations seen. Increased opacification in each base probably shallow inspiration atelectasis. Early lung base edema or infiltrate cannot be excluded. CT angio chest: COMPARISON: Chest Single View dated 07/16/2021 TECHNIQUE: Dynamically enhanced 3 mm thick images of the chest were obtained during administration of approximately 150mL Isovue 370 IV contrast. Coronal and oblique MIP reconstruction images were generated and reviewed. Exam utilizes a protocol to evaluate the pulmonary arterial tree. All CT scans are performed using dose optimization technique as appropriate and may include automated exposure control or mA/KV adjustment according to patient size. FINDINGS: No pulmonary emboli are identified. The aorta as imaged shows no acute or suspicious finding. No pericardial thickening or effusion. Motion degradation limits evaluation of the lung parenchyma. There is a 9 millimeter rounded noncalcified nodule in the right middle lobe (image 78) and a 3 millimeter noncalcified nodule in the left upper lobe (image 58). No consolidation. Scarring or atelectasis changes are present in the lung bases. No pleural effusion or pleural thickening. Small nonspecific mediastinal and hilar lymph nodes are present. No chest wall masses or abnormal axillary lymphadenopathy. IMPRESSION: No pulmonary emboli identified. No focal consolidation or acute lung parenchymal process identified. Two pulmonary nodules are present largest measuring 9 mm. Using the Fleischner 2017 criteria, recommendation for the patient would be to undergoCT study in 3-6 months. If the nodules are stable at the initial follow-up, additional follow- up in 18-24 months would be considered for low risk patient or obtained for a high risk patient. Physical Exam: GENERAL: The patient is a well-developed, well-nourished, in no apparent distress. Alert and oriented x3. VITAL SIGNS: Reviewed HEENT: Neck supple LUNGS: Wheezing noted. Overall better air movement. Now down to 6 L per nasal cannula HEART: Regular rate and rhythm, no appreciable gallops, rubs, murmurs or extra heart sounds ABDOMEN: Soft, nontender, and nondistended. Positive bowel sounds. No hepatosplenomegaly was noted. EXTREMITIES: Without any cyanosis, clubbing, rash, lesions or peripheral edema. NEUROLOGIC: The patient is oriented to person, place and time. Strength and sensation are grossly intact. Face is symmetric. SKIN: Normal color, turgor and temperature. No ulcerations or rashes noted. Impression: Dyspnea secondary to COPD exacerbation with CT scan showing 2 pulmonary nodules UTI with bacteremia, blood culture positive for gram-negative rods Diabetes mellitus type 2 with hyperglycemia Hypertension Hyperlipidemia Hypothyroidism GERD Tobacco abuse Depression with anxiety Obstructive sleep apnea Plan: Dyspnea secondary to COPD exacerbation with CT scan showing 2 pulmonary nodules: Patient overall stable and improved. Still on 6 L per nasal cannula. 2 out of 4 blood cultures positive for gram-negative rods. Will change antibiotic therapy to Levaquin. Await blood and urine culture results. Continue with COPD medication. Continue to wean off oxygen to maintain sats above 90%. CT shows no evidence of pneumonia or pulmonary embolus. Continue prednisone taper. Patient will require COPD medication at discharge. CT scan revealed pulmonary nodules. This will need to be further evaluated as an outpatient with follow-up and repeat CT scan in 3 to 6 months. Anticipate discharge in the next 48 hours. UTI with bacteremia, blood culture positive for gram-negative rods: Patient was on Rocephin. Will change to Levaquin IV. Await blood and urine culture results. Diabetes mellitus type 2 with hyperglycemia: Hemoglobin A1c 7.4. Blood sugars elevated with steroid. Continue to adjust Lantus for better control. Continue Accu-Cheks and sliding scale. Hypertension: Continue lisinopril 5 mg daily. Will monitor and adjust accordingly. Hyperlipidemia: Continue home medication Zocor 40 mg daily. Hypothyroidism: Lab unremarkable. Continue home medication levothyroxine 88 mcg daily. GERD: Continue with home medicationProtonix 40 mg daily. Tobacco abuse: Will provide nicotine patch. Cessation education will be provided. Depression with anxiety: Continue with home medication of sertraline 100 mg daily and lorazepam as needed. Obstructive sleep apnea: Continue CPAP at night Code Status: Full Code DVT prophylaxis: Lovenox Advanced Care Planning-30 minutes: Home at discharge. Patient plans to go back to [facility] at discharge Time Spent Managing Pts Care (In Minutes): 55
[2021-07-18 06:02] LABS: Magnesium 2.3 mg/dL (1.8-2.4); Potassium 4.6 mmol/L (3.5-5.1)
[2021-07-18] MEDS ORDERED: INSULIN GLARGINE 100 UNITS/ML SQ SCH (08:00)
[2021-07-18] MEDS: ARFORMOTEROL TARTRATE 15 MCG/2 ML VIAL.NEB NEB SCH ×2 (08:08→20:00)
[2021-07-18] MEDS: ENOXAPARIN 40 MG/0.4 ML SQ SCH (08:37)
[2021-07-18] MEDS: NICOTINE 21 MG/PAT TD SCH (08:37)
[2021-07-18] MEDS: SERTRALINE HCL 100 MG TAB PO SCH (08:38)
[2021-07-18] MEDS: Levofloxacin 750mg IV 750 MG/150 ML BAG IV SCH (08:38)
[2021-07-18] MEDS: FOLIC ACID 1 MG TABLET PO SCH (08:38)
[2021-07-18] MEDS: METFORMIN HCL 500 MG TAB PO SCH ×3 (08:38→20:48)
[2021-07-18] MEDS: PANTOPRAZOLE 40MG TABLET PO SCH (08:39)
[2021-07-18] MEDS: predniSONE 20 MG TAB PO SCH ×2 (08:39→20:48)
[2021-07-18] MEDS: lisinopriL 5 MG TAB PO SCH (08:39)
[2021-07-18] MEDS: THIAMINE HCL 100 MG TABLET PO SCH (08:39)
[2021-07-18] MEDS: INSULIN -REGULAR HUMAN 50 UNIT/0.5 ML ML SQ SCH ×4 (08:40→20:50)
--- NOTE | 2021-07-18 08:53 | RAD REPORT ---
EXAM DESCRIPTION: RAD - Chest Single View - 07/18/2021 8:25 am CLINICAL HISTORY: follow up COPDpneumonia COMPARISON: July 16 CT chest and portable chest TECHNIQUE: AP portable chest image was obtained 07/18/2021 8:25 am . FINDINGS: Lung volumes are low. Interstitial and patchy alveolar opacities are present slightly wors e than comparison. Exam limitations accentuate the degree of progression. Heart and vasculature are n ormal. No measurable pleural effusion and no pneumothorax. No acute bony abnormality seen. No acute a ortic findings suspected. IMPRESSION: Interstitial and alveolar opacification appears progressive from comparison imaging. Shallow inspiration and under penetrated technique exaggerate the progression.
[2021-07-18] MEDS: ACETAMINOPHEN 500 MG TAB PO PRN ×2 (11:08→16:44)
[2021-07-18] MEDS: ATORVASTATIN 20 MG TAB PO SCH (20:48)
[2021-07-19] MEDS: IPRATROPIUM BROM 0.5MG/2.5ML IH SCH ×4 (02:32→19:56)
--- NOTE | 2021-07-19 06:03 | P.PN ---
Subjective Date of Service: 07/19/21 Primary Care Provider: Luis Garcia Chief Complaint: Shortness of breath and dysuria Subjective: Improving, Other (Currently on 5 L per nasal cannula) Physical Examination - Vital Signs Temperature: 98.8 F Blood Pressure: 115/55 Pulse: 65 Respirations: 16 Pulse Ox (%): 91 Assessment & Plan Discharge Plan: Home Plan to discharge in: 24 Hours Physician Review Additional Text: COVID: Negative Chest x-ray: COMPARISON: None TECHNIQUE: AP portable chest image was obtained 07/16/2021 1:12 pm . FINDINGS: No mass or consolidation. Lung markings are accentuated in each base due to shallow inspiration and under penetrated portable technique. Minimal lung base infiltrates cannot be excluded. No failure or volume overload suspected. Heart and vasculature are normal. No measurable pleural effusion and no pneumothorax. No acute bony abnormality seen. No acute aortic findings suspected. IMPRESSION: Limited portable study without peripheral mass or consolidations seen. Increased opacification in each base probably shallow inspiration atelectasis. Early lung base edema or infiltrate cannot be excluded. CT angio chest: COMPARISON: Chest Single View dated 07/16/2021 TECHNIQUE: Dynamically enhanced 3 mm thick images of the chest were obtained during administration of approximately 150mL Isovue 370 IV contrast. Coronal and oblique MIP reconstruction images were generated and reviewed. Exam utilizes a protocol to evaluate the pulmonary arterial tree. All CT scans are performed using dose optimization technique as appropriate and may include automated exposure control or mA/KV adjustment according to patient size. FINDINGS: No pulmonary emboli are identified. The aorta as imaged shows no acute or suspicious finding. No pericardial thickening or effusion. Motion degradation limits evaluation of the lung parenchyma. There is a 9 millimeter rounded noncalcified nodule in the right middle lobe (image 78) and a 3 millimeter noncalcified nodule in the left upper lobe (image 58). No consolidation. Scarring or atelectasis changes are present in the lung bases. No pleural effusion or pleural thickening. Small nonspecific mediastinal and hilar lymph nodes are present. No chest wall masses or abnormal axillary lymphadenopathy. IMPRESSION: No pulmonary emboli identified. No focal consolidation or acute lung parenchymal process identified. Two pulmonary nodules are present largest measuring 9 mm. Using the Fleischner 2017 criteria, recommendation for the patient would be to undergoCT study in 3-6 months. If the nodules are stable at the initial follow-up, additional follow- up in 18-24 months would be considered for low risk patient or obtained for a high risk patient. Physical Exam: GENERAL: The patient is a well-developed, well-nourished, in no apparent distress. Alert and oriented x3. VITAL SIGNS: Reviewed HEENT: Neck supple LUNGS: Better air movement. Wheezing improved. Now down to 5 L per nasal cannula HEART: Regular rate and rhythm, no appreciable gallops, rubs, murmurs or extra heart sounds ABDOMEN: Soft, nontender, and nondistended. Positive bowel sounds. No hepatosplenomegaly was noted. EXTREMITIES: Without any cyanosis, clubbing, rash, lesions or peripheral edema. NEUROLOGIC: The patient is oriented to person, place and time. Strength and sensation are grossly intact. Face is symmetric. SKIN: Normal color, turgor and temperature. No ulcerations or rashes noted. Impression: Dyspnea secondary to COPD exacerbation with CT scan showing 2 pulmonary nodules UTI with bacteremia, blood culture positive for E. coli Diabetes mellitus type 2 with hyperglycemia Hypertension Hyperlipidemia Hypothyroidism GERD Tobacco abuse Depression with anxiety Obstructive sleep apnea Plan: Dyspnea secondary to COPD exacerbation with CT scan showing 2 pulmonary nodules: Patient overall improved. Patient remains on 5 L per nasal cannula. Continue to wean off oxygen to maintain sats above 90%. Continue COPD medication. Patient also with bacteremia. Urine culture shows E. coli. Will transition to oral Levaquin. Patient will need 14-day treatment of medication. Continue oral prednisone taper. CT shows no evidence of pneumonia or pulmonary embolus but showed 2 pulmonary nodules. This will need to be further evaluated as an outpatient with follow-up and repeat CT scan in 3 to 6 months. Anticipate continued improvement. Likely discharge tomorrow on home oxygen. Patient plans to return back to [facility]. Will need to ensure patient able to get portable oxygen for travel. I will turn the service over to the hospitalist team tomorrow. I will go plan of care with him. UTI with bacteremia, blood culture positive for E. coli: Blood culture reviewed. Will transition to oral Levaquin. Patient will need at least 14 days of therapy. Recheck blood culture tomorrow. Will obtain echocardiogram. Diabetes mellitus type 2 with hyperglycemia: Hemoglobin A1c 7.4. Patient curr ently on Lantus and metformin. Continue to adjust medication accordingly. Hypertension: Continue lisinopril 5 mg daily. Will monitor and adjust accordingly. Hyperlipidemia: Continue home medication Zocor 40 mg daily. Hypothyroidism: Lab unremarkable. Continue home medication levothyroxine 88 mcg daily. GERD: Continue with home medicationProtonix 40 mg daily. Tobacco abuse: Continue nicotine patch. Cessation education will be provided. Depression with anxiety: Continue with home medication of sertraline 100 mg daily and lorazepam as needed. Obstructive sleep apnea: Continue CPAP at night Code Status: Full Code DVT prophylaxis: Lovenox Advanced Care Planning-30 minutes: Home at discharge with home oxygen. Patient plans to go back to [facility] at discharge Time Spent Managing Pts Care (In Minutes): 55
[2021-07-19 06:19] LABS: Absolute Lymphocytes (CBC) 1.4 K/uL (0.7-4.9); Basophils % 0.3 % (0-1.3); Lymphocytes % 18.9 % (15.3-44.8); MPV 7.8 fL (7.6-11.3); RBC Red Blood Cell Count 4.04 M/uL (3.86-4.86)
[2021-07-19] MEDS: LEVOTHYROXINE SOD 0.088 MG TAB PO SCH (06:22)
[2021-07-19 06:25] LABS: Magnesium 2.2 mg/dL (1.8-2.4); Potassium 3.8 mmol/L (3.5-5.1)
[2021-07-19] MEDS: ARFORMOTEROL TARTRATE 15 MCG/2 ML VIAL.NEB NEB SCH ×2 (07:41→19:56)
[2021-07-19] MEDS: INSULIN GLARGINE 100 UNIT/ML SQ SCH (08:00)
[2021-07-19] MEDS: ENOXAPARIN 40 MG/0.4 ML SQ SCH (08:08)
[2021-07-19] MEDS: INSULIN -REGULAR HUMAN 50 UNIT/0.5 ML ML SQ SCH ×4 (08:08→20:39)
[2021-07-19] MEDS: predniSONE 20 MG TAB PO SCH ×2 (08:09→20:36)
[2021-07-19] MEDS: lisinopriL 5 MG TAB PO SCH (08:09)
[2021-07-19] MEDS: PANTOPRAZOLE 40MG TABLET PO SCH (08:09)
[2021-07-19] MEDS: FOLIC ACID 1 MG TABLET PO SCH (08:09)
[2021-07-19] MEDS: THIAMINE HCL 100 MG TABLET PO SCH (08:10)
[2021-07-19] MEDS: NICOTINE 21 MG/PAT TD SCH (08:10)
[2021-07-19] MEDS: METFORMIN HCL 500 MG TAB PO SCH ×3 (08:10→20:36)
[2021-07-19] MEDS: SERTRALINE HCL 100 MG TAB PO SCH (08:10)
[2021-07-19] MEDS: Levofloxacin 750mg IV 750 MG/150 ML BAG IV SCH (08:11)
--- NOTE | 2021-07-19 11:16 | P.PN ---
Subjective Date of Service: 07/19/21 Primary Care Provider: Luis Garcia Chief Complaint: COPD exacerbation E coli bacteremia Subjective: Improving (Patient is improving doing well back to her baseline blood cultures positive for E coli pansensitive) Review of Systems Respiratory: Shortness of Breath Physical Examination - Vital Signs Temperature: 98.8 F Blood Pressure: 115/55 Pulse: 65 Respirations: 16 Pulse Ox (%): 91 - Physical Exam General: Alert, Oriented x3 HEENT: PERRLA Respiratory: Expiratory wheezes Cardiovascular: No edema, Normal S1 S2 - Studies Microbiology Data (last 24 hrs): 07/16/21 13:20 Blood - Blood Aerobic Blood Culture - Final Escherichia Coli 07/16/21 13:20 Blood - Blood Blood Culture Gram Stain - Final 07/16/21 13:31 Blood - Blood Aerobic Blood Culture - Final Escherichia Coli 07/16/21 13:31 Blood - Blood Blood Culture Gram Stain - Final Assessment & Plan - Problems (Diagnosis) (1) COPD exacerbation Current Visit: Yes Status: Acute Plan: Doing much better a E coli bacteremia is pansensitive continue with bronchodilators plan for discharge low-dose prednisone change to p.o. 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
[2021-07-19] MEDS: LORAZEPAM 0.5 MG TABLET PO PRN (11:19)
[2021-07-19] MEDS: ATORVASTATIN 20 MG TAB PO SCH (20:36)
[2021-07-20] MEDS: IPRATROPIUM BROM 0.5MG/2.5ML IH SCH ×4 (02:50→20:50)
[2021-07-20] MEDS: LEVOTHYROXINE SOD 0.088 MG TAB PO SCH (05:50)
[2021-07-20 06:40] LABS: Urine Appearance Clear (Clear); Urine Bilirubin Negative (Negative); Urine Blood Negative (Negative); Urine Color Yellow (Yellow); Urine Glucose Trace (Negative); Urine Protein Negative (Negative); Urine Specific Gravity 1.025 (1.005-1.030); Urine Urobilinogen 0.2 mg/dL (0.2-1.0)
[2021-07-20 06:41] LABS: Urine Microscopic Reflex NO UMIC
[2021-07-20] MEDS: INSULIN -REGULAR HUMAN 50 UNIT/0.5 ML ML SQ SCH ×4 (07:30→20:42)
[2021-07-20] MEDS: ARFORMOTEROL TARTRATE 15 MCG/2 ML VIAL.NEB NEB SCH ×2 (07:50→20:50)
[2021-07-20] MEDS ORDERED: INFLUENZA VACCINE (for 6+ mo) 0.5 ML DOSE IMVAC ONE (08:00)
[2021-07-20] MEDS: INSULIN GLARGINE 100 UNIT/ML SQ SCH (08:00)
[2021-07-20] MEDS ORDERED: PNEUMOCOCCAL VACCINE 0.5 ML IMVAC ONE (08:00)
[2021-07-20] MEDS: ENOXAPARIN 40 MG/0.4 ML SQ SCH (08:24)
[2021-07-20] MEDS: NICOTINE 21 MG/PAT TD SCH (08:25)
[2021-07-20] MEDS: SERTRALINE HCL 100 MG TAB PO SCH (08:25)
[2021-07-20] MEDS: predniSONE 20 MG TAB PO SCH ×2 (08:26→20:42)
[2021-07-20] MEDS: METFORMIN HCL 500 MG TAB PO SCH ×3 (08:26→20:42)
[2021-07-20] MEDS: lisinopriL 5 MG TAB PO SCH (08:26)
[2021-07-20] MEDS: FOLIC ACID 1 MG TABLET PO SCH (08:26)
[2021-07-20] MEDS: levoFLOXacin 750 MG TAB PO SCH (08:26)
[2021-07-20] MEDS: LORAZEPAM 0.5 MG TABLET PO PRN (08:27)
[2021-07-20] MEDS: THIAMINE HCL 100 MG TABLET PO SCH (08:27)
[2021-07-20] MEDS: PANTOPRAZOLE 40MG TABLET PO SCH (08:27)
[2021-07-20] MEDS: ATORVASTATIN 20 MG TAB PO SCH (20:42)
[2021-07-21] MEDS: IPRATROPIUM BROM 0.5MG/2.5ML IH SCH ×2 (02:00→08:00)
[2021-07-21] MEDS: LEVOTHYROXINE SOD 0.088 MG TAB PO SCH (06:00)
--- NOTE | 2021-07-21 06:47 | ECHO ---
HEIGHT: 5 ft 4 in WEIGHT: 200 lb 0 oz DATE OF STUDY: 07/20/[address]: Gerardo Colón DO 2-DIMENSIONAL: YES M.MODE: YES DOPPLER: YES COLOR FLOW: YES TDS: PORTABLE: DEFINITY: BUBBLE STUDY: DIAGNOSIS: BACTEREMIA CARDIAC HISTORY: CATHERIZATION: NO SURGERY: NO PROSTHETIC VALVE: NO PACEMAKER: NO MEASUREMENTS (cm) DIASTOLIC (NORMALS) SYSTOLIC (NORMALS) IVSd 1.1 (0.6-1.2) LA Diam 2.9 (1.9-4.0) LVEF 68% LVIDd 4.3 (3.5-5.7) LVIDs 2.6 (2.0-3.5) %FS 38% LVPWd 1.2 (0.6-1.2) Ao Diam 2.5 (2.0-3.7) 2 DIMENSIONAL ASSESSMENT: RIGHT ATRIUM: NORMAL LEFT ATRIUM: NORMAL RIGHT VENTRICLE: NORMAL LEFT VENTRICLE: NORMAL TRICUSPID VALVE: NORMAL MITRAL VALVE: NORMAL PULMONIC VALVE: NORMAL AORTIC VALVE: NORMAL PERICARDIAL EFFUSION: NONE AORTIC ROOT: NORMAL LEFT VENTRICULAR WALL MOTION: NORMAL DOPPLER/COLOR FLOW: MILD TRICUSPID REGURGITATION. MILD MITRAL REGURGITATION. COMMENTS: NORMAL LEFT VENTRICULAR EJECTION FRACTION 60-65% WITH NORMAL WALL MOTION. NO CLEAR VEGETATION IS SEEN. IF CLINICALLY INDICATED RECOMMEND TRANSESOPHEGAL ECHOCARDIOGRAM. MILD MITRAL REGURGITATION. MILD TRICUSPID REGURGITATION. TECHNOLOGIST: TEA LEARY
[2021-07-21] MEDS: INSULIN -REGULAR HUMAN 50 UNIT/0.5 ML ML SQ SCH (07:30)
[2021-07-21] MEDS: ARFORMOTEROL TARTRATE 15 MCG/2 ML VIAL.NEB NEB SCH (08:00)
[2021-07-21] MEDS: INSULIN GLARGINE 100 UNIT/ML SQ SCH (08:00)
[2021-07-21] MEDS: PANTOPRAZOLE 40MG TABLET PO SCH (08:15)
[2021-07-21] MEDS: lisinopriL 5 MG TAB PO SCH (08:42)
[2021-07-21] MEDS: predniSONE 20 MG TAB PO SCH (08:45)
[2021-07-21] MEDS: levoFLOXacin 750 MG TAB PO SCH (08:45)
[2021-07-21] MEDS: METFORMIN HCL 500 MG TAB PO SCH (08:45)
[2021-07-21] MEDS: FOLIC ACID 1 MG TABLET PO SCH (08:45)
[2021-07-21] MEDS: SERTRALINE HCL 100 MG TAB PO SCH (08:46)
[2021-07-21] MEDS: NICOTINE 21 MG/PAT TD SCH (08:46)
[2021-07-21] MEDS: ENOXAPARIN 40 MG/0.4 ML SQ SCH (08:46)
[2021-07-21] MEDS: THIAMINE HCL 100 MG TABLET PO SCH (08:48)
[2021-07-21 08:51] VITALS: BP 127/69; TEMP 97
[2021-07-21 10:26] VITALS: O2SAT 94
--- NOTE | 2021-07-26 19:33 | P.PN ---
Subjective Date of Service: 07/20/21 Patient is clinically doing better. Respiratory status has improved. Anticipate discharge in the morning. Review of Systems 10-point ROS is otherwise unremarkable Physical Examination - Vital Signs Temperature: 97.0 F Blood Pressure: 127/69 Pulse: 99 Respirations: 20 Pulse Ox (%): 94 - Physical Exam General: Alert, In no apparent distress HEENT: Atraumatic, PERRLA, EOMI Neck: Supple, JVD not distended Respiratory: Clear to auscultation bilaterally, Normal air movement Cardiovascular: Regular rate/rhythm, Normal S1 S2 Gastrointestinal: Normal bowel sounds, No tenderness Musculoskeletal: No tenderness Integumentary: No rashes Neurological: Normal speech, Normal tone, Normal affect Lymphatics: No axilla or inguinal lymphadenopathy - Studies Medications List Reviewed: Yes Assessment & Plan - Problems (Diagnosis) (1) COPD with acute exacerbation Status: Acute - Plan Plan: 1. Continue with albuterol and Atrovent nebs 2. Continue with IV steroids 3. Outpatient pulmonary function testing 4. Pulmonary follow-up if symptoms do not improve 5. Room air O2 sats; arrange for home oxygen 6. Repeat chest x-ray in the morning 7. GI and DVT prophylaxis - Advance Directives Does patient have a Living Will: No Does patient have a Durable POA for Healthcare: No
--- NOTE | 2021-07-26 19:34 | P.DS ---
Discharge Date: 07/21/21 Primary Care Provider: Luis Garcia Disposition: ROUTINE DISCHARGE Discharge Condition: GOOD Reason for Admission: COPD exacerbation E coli bacteremia - Problems (1) COPD with acute exacerbation Status: Acute Brief History of Present Illness: Patient is a 66-year-old female presented to the emergency room with increasing shortness of breath and dysuria. Patient is visiting in the area. She is from [facility] near [facility]. She reports 3-day history of dysuria. She had fever this morning. She denied any night sweats, or chest pain. She did report some shortness of breath. No significant nausea or vomiting. Patient came to the ER for further evaluation. In the ER patient was evaluated. Patient had shortness of breath. D-dimer was elevated. CT scan showed no evidence of pulmonary believes him or pneumonia. Patient found to have a UTI. White count 9.6, hemoglobin 14. Blood count 185. Sodium 136, potassium 4.1. BUN of 15, creatinine 1.03 with a GFR 53. Glucose 276. Procalcitonin 0.44. Troponin normal. Lactic acid was 2.2. Patient was given 1 L fluid bolus. Repeat lactic acid normal at 1.6. Patient admitted for further evaluation and treatment. Patient reports history of COPD but only takes albuterol. Hospital Course: Patient was treated with nebs, steroids, and antibiotics. Patient's clinical symptoms have improved. At this time, patient is stable for discharge with outpatient follow-up with local cpas. Vital Signs/Physical Exam: Temp Pulse Resp BP Pulse Ox 97.0 F 99 H 20 127/69 94 07/26/21 19:33 07/26/21 19:33 07/26/21 19:33 07/26/21 19:33 07/26/21 19:33 General: Alert, In no apparent distress, Oriented x3 Laboratory Data at Discharge: WBC 7.30 K/uL (4.3-10.9) D 07/19/21 05:44 Hgb 13.0 g/dL (12.0-15.0) 07/19/21 05:44 Hct 39.0 % (36.0-45.0) 07/19/21 05:44 Plt Count 221 K/uL (152-406) 07/19/21 05:44 PT 11.8 SECONDS (9.5-12.5) 07/16/21 13:20 INR 1.03 07/16/21 13:20 APTT 31.8 SECONDS (24.3-36.9) 07/16/21 13:20 Sodium 140 mmol/L (136-145) 07/19/21 05:44 Potassium 3.8 mmol/L (3.5-5.1) 07/19/21 05:44 BUN 17 mg/dL (7-18) 07/19/21 05:44 Creatinine 0.76 mg/dL (0.55-1.3) 07/19/21 05:44 Glucose 266 mg/dL (74-106) H 07/19/21 05:44 Magnesium 2.2 mg/dL (1.8-2.4) 07/19/21 05:44 Total Bilirubin 0.5 mg/dL (0.2-1.0) 07/16/21 13:20 AST 18 U/L (15-37) 07/16/21 13:20 ALT 22 U/L (12-78) 07/16/21 13:20 Alkaline Phosphatase 98 U/L (45-117) 07/16/21 13:20 Triglycerides 202 mg/dL (<150) H 07/17/21 05:43 Cholesterol 144 mg/dL (<200) 07/17/21 05:43 HDL Cholesterol 31 mg/dL (40-60) L 07/17/21 05:43 Cholesterol/HDL Ratio 4.65 07/17/21 05:43 Lipase 97 U/L (73-393) 07/16/21 13:20 Home Medications: LORazepam [Ativan*] 0.5 mg PO BID PRN 07/16/21 Levothyroxine [Synthroid*] 0.088 mg PO DAILY 07/16/21 Metformin ER [Glucophage ER*] 500 mg PO TID 07/16/21 Sertraline [Zoloft*] 100 mg PO DAILY 07/16/21 Lisinopril [Zestril] 5 mg PO DAILY 07/17/21 Pantoprazole [Protonix Tab*] 40 mg PO DAILY 07/17/21 Simvastatin 40 mg PO DAILY 07/17/21 Albuterol Neb [Proventil 0.083% Neb Soln] 2.5 mg NEB [id number] PRN #60 amp 07/21/21 Arformoterol Tartrate [Brovana] 15 mcg NEB BIDRESP #60 vial.neb 07/21/21 Ipratropium Neb [Atrovent*] 0.5 mg NEB [id number] PRN #60 amp 07/21/21 LORazepam [Ativan*] 0.5 mg PO Q8H PRN #0 tab 07/21/21 Levothyroxine [Synthroid*] 0.088 mg PO DAILYAC tab 07/21/21 levoFLOXacin [Levaquin*] 750 mg PO DAILY #5 tab 07/21/21 predniSONE [Prednisone*] 20 mg PO BID #11 tab 07/21/21 New Medications: Ipratropium Neb [Atrovent*] 0.5 mg NEB [id number] PRN #60 amp PRN Reason: Shortness Of Breath Arformoterol Tartrate [Brovana] 15 mcg NEB BIDRESP #60 vial.neb levoFLOXacin [Levaquin*] 750 mg PO DAILY #5 tab predniSONE [Prednisone*] 20 mg PO BID #11 tab Albuterol Neb [Proventil 0.083% Neb Soln] 2.5 mg NEB [id number] PRN #60 amp PRN Reason: Shortness Of Breath Physician Discharge Instructions: OK TO DC IV AND DC HOME FOLLOW-UP WITH PRIMARY CARE PROVIDER IN 1-2 WEEKS FOLLOW-UP WITH Pulmonary IN 1-2 WEEKS RETURN TO THE ER IF symptoms worsen CALL or TEXT DR. SIERRA AT [phone] IF ANY QUESTIONS REGARDING HOSPITAL STAY. PLEASE CALL THE FLOOR AT [phone] IF ANY MEDICATION OR NURSING QUESTIONS. Diet: AHA Activity: Fall precautions Followup: ALEXANDRA MORRIS [Primary Care Provider] - Time spent managing pt's care (in minutes): 35
== END 2021-07-21 11:10 | disposition home or self-care (01) | DRG 871 ==
LOC: ER 12:38 → ERHOLD 16:57 → 2ND 18:12
PROVIDERS: ADMIT Family Medicine; ATTEND Family Medicine
DX: A41.51 Sepsis due to Escherichia coli [E. coli] (principal); J96.01 Acute respiratory failure with hypoxia; J44.1 Chronic obstructive pulmonary disease with (acute) exacerbation; N39.0 Urinary tract infection, site not specified; E03.9 Hypothyroidism, unspecified; I10 Essential (primary) hypertension; R91.8 Other nonspecific abnormal finding of lung field; E11.65 Type 2 diabetes mellitus with hyperglycemia; F17.210 Nicotine dependence, cigarettes, uncomplicated; E78.5 Hyperlipidemia, unspecified; K21.9 Gastro-esophageal reflux disease without esophagitis; F41.8 Other specified anxiety disorders; G47.33 Obstructive sleep apnea (adult) (pediatric); B96.20 Unspecified Escherichia coli [E. coli] as the cause of diseases classified elsewhere; Z20.822 Contact with and (suspected) exposure to COVID-19
CPT/HCPCS: 36415; 71045; 71275; 80048; 80061; 80076; 81003; 82550; 82553; 82947; 83036; 83605; 83690; 83735; 83880; 84145; 84439; 84443; 84484; 85025; 85379; 85610; 85730; 87040; 87077; 87186; 87205; 90732; 93005; 93306; 94010; 96365; 96366; 96375; 99285; J1650; J1815; J2930; J7030; J7040; J7512; J7605; Q2035; Q9967; U0003